=== PATIENT | female | born 2000 | race Caucasian/White ===

== ENCOUNTER 2024-09-13 20:55 | Emergency (ER) | payer BC, SELFPAY ==
[2024-09-13 21:04] VITALS: BP 163/94; PULSE 83; RESP 20; TEMP 37; O2SAT 100; BMI 51.5
--- NOTE | 2024-09-13 21:32 | CT_ITS ---
PROCEDURE INFORMATION: Exam: CT Abdomen And Pelvis Without Contrast Exam date and time: 09/13/2024 9:57 PM Age: 24 years old Clinical indication: Abdominal pain; Additional info: R flank pain, h/o kidney stones TECHNIQUE: Imaging protocol: Computed tomography of the abdomen and pelvis without contrast. Radiation optimization: All CT scans at this facility use at least one of these dose optimization techniques: automated exposure control; mA and/or kV adjustment per patient size (includes targeted exams where dose is matched to clinical indication); or iterative reconstruction. COMPARISON: No relevant prior studies available. FINDINGS: Liver: Normal. Gallbladder and biliary ducts: Normal Pancreas: Normal. Spleen: Normal. Adrenal glands: Normal. No mass. Kidneys and ureters: Mild right hydronephrosis, with 6 mm obstructive calculus at the right UPJ (series 3, image 61). Stomach and bowel: Normal. Appendix: Appendix normal. Intraperitoneal space: Unremarkable. No free air. No significant fluid collection. Vasculature: Phleboliths within the pelvis. Lymph nodes: Unremarkable. No enlarged lymph nodes. Urinary bladder: Unremarkable as visualized. Reproductive: Unremarkable as visualized. Bones/joints: No acute abnormality. Soft tissues: Normal. IMPRESSION: Mild right hydronephrosis, with 6 mm obstructive calculus at the right UPJ (series 3, image 61).
[2024-09-13 21:35] LABS: Basophils # 0.1 K/mm3 (0-0.2); Basophils % 0.5 % (0.1-2.0); Eosinophils # 0.3 Kmm3 (0.0-0.4); Eosinophils % 1.9 % (0.1-12.0); Hematocrit 41.2 % (37.0-47.0); Hemoglobin 14.1 g/dL (12.2-16.2); Immature Granulocytes # 0.08 10^3uL; Immature Granulocytes % 0.5 %; Lymphocytes # 3.6 K/mm3 (0.7-4.5); Mean Corpuscular HGB Conc 34.2 g/dL (31.8-35.4); Mean Corpuscular Hemoglobin 29.5 pg (27.0-31.2); Mean Corpuscular Volume 86.2 fl (81-99); Mean Platelet Volume 10.4 fl (7.4-10.4); Monocytes # 0.9 K/mm3 (0.1-1.0); Neutrophils # 12.8 K/mm3 (1.8-7.8); Neutrophils % 72.1 % (37.0-80.0); Nucleated Red Blood Cells # 0 10^3/uL; Nucleated Red Blood Cells % 0 %; Platelet Count 443 K/mm3 (142-424); Red Blood Count 4.78 M/mm3 (4.20-5.40); Red Cell Distribution Width-SD 40.3 fL; White Blood Count 17.7 K/mm3 (4.8-10.8)
--- NOTE | 2024-09-13 21:36 | ED_ITS ---
Discharge Plan Referrals Follow up/Referrals: Provider,Referral, [Primary Care Provider, Medical] - See instructions Clinical Impressions Clinical Impression: Ureterolithiasis, UTI (urinary tract infection) Print Language Print Language: Tamaz[place] Discharge ED Provider: Linh Leslie General Adult HPI General Chief complaint: PAIN Stated complaint: Poss Kidney stone, lower rt side pain Time Seen by Provider: 09/13/24 21:12 Mode of Arrival: Ambulatory Source of Information: Patient Description of Symptoms (Recalled from ER Triage Doc. by RN): Pt presents with right flank pain that began suddenly after a nap. Pt denies any urinary symptoms, rates pain 8/10, nausea and vomiting, and diapheretic. Pt states she has hx of kidney stones, typically begins with an ache before she the pain gets bad. Unsure if she may be . History of Present Illness HPI narrative: This patient is a 24-year-old female who reports prior history of kidney stones presenting to the emergency department for evaluation with concern for right flank pain that started suddenly this afternoon after a nap. She states today that is 10. She also notes accompanying nausea. She states that with prior kidney stones, she is never had nausea like this. No fevers, changes bowel movements, or other concerns. When asked if there is a chance she could be , she states there is a chance. No recent dysuria, urinary frequency, or abnormal vaginal discharge/bleeding. Related Data Allergies Allergy/AdvReac Type Severity Reaction Status Date / Time No Known Allergies Allergy Verified 09/13/24 21:36 [facility] Disclaimer: The information contained in this section may have been updated after the patient was seen, as this information can be updated by other users. Social History Smoking Status: Never smoker alcohol intake: never current occupational status: employed Travel in the last 8 weeks?: None ROS Obtained: Yes All systems reviewed & no additional complaints except as documented Physical Exam General General appearance: alert, in no apparent distress and obese Head Head exam: atraumatic and normocephalic Eye Eye exam: Present normal appearance, PERRL and EOMI ENT ENT exam: Present normal exam, normal oropharynx, mucous membranes moist and normal external ear exam Neck Neck exam: Present normal inspection, full ROM and trachea midline; Absent tenderness Chest Chest inspection: Present normal inspection and symmetric chest wall rise; Absent tenderness Respiratory Respiratory exam: Present normal lung sounds bilaterally; Absent respiratory distress, wheezes, stridor or accessory muscle use Cardiovascular Cardiovascular exam: Present regular rate and normal rhythm Abdominal Exam Abdominal exam: Present soft; Absent distention, tenderness or guarding Extremities Exam Extremities exam: Present normal inspection, full ROM and normal capillary refill; Absent tenderness or edema Back Exam Back exam: Present CVA tenderness (R) Neurological Exam Neurological exam: Present alert, oriented X3, CN II-XII intact and normal gait; Absent motor sensory deficit Psychiatric Psychiatric exam: Present normal affect and normal mood Skin Skin exam: Present warm and dry Medical Decision Making Medical Records Medical records reviewed: Yes I reviewed the patient's medical records. Screening: Per USPSTF and CDC recommendations, given the prevalence of disease in our region, it is our hospital?s policy to screen for HIV and viral Hepatitis for all patients aged 18 and over and those with ongoing risk factors. [place] Inquiry Pt receiving controlled substance: No Vital Signs: 09/13/24 21:04 Temperature 98.6 F Temperature Source Oral Pulse Rate [Left] 83 Respiratory Rate 20 Blood Pressure [Right Arm] 163/94 H Blood Pressure Mean [Right Arm] 117 Blood Pressure Position [Right Arm] Sitting 02 Sat by Pulse Oximetry 100 Oxygen Delivery Method Room Air Lab Data Lab results reviewed: Yes I reviewed the patient's lab results. Lab Results 09/13/24 21:30: WBC 17.7 H, RBC 4.78, Hgb 14.1, Hct 41.2, MCV 86.2, MCH 29.5, MCHC 34.2, RDW 13.0, Plt Count 443 H, MPV 10.4, Neut % (Auto) 72.1, Lymph % (Auto) 20.0, [place] % (Auto) 5.0, Eos % (Auto) 1.9, Baso % (Auto) 0.5, Neut # (Auto) 12.8 H, Lymph # (Auto) 3.6, [place] # (Auto) 0.9, Eos # (Auto) 0.3, Baso # (Auto) 0.1, Sodium 138, Potassium 4.9, Chloride 108 H, Carbon Dioxide 21 L, Anion Gap 13.9, BUN 14, Creatinine 0.90, Estimated Creat Clear 83, Estimated GFR 77, Est GFR ( Amer) 93, Glucose 110 H, Calcium 9.3, Total Bilirubin 0.4, AST 41 H, ALT 46, Alkaline Phosphatase 69, Total Protein 7.6, Albumin 4.6, Globulin 3.0, Albumin/Globulin Ratio 1.5, Lipase 86, Serum HCG, Qual Negative 09/13/24 22:01: Urine Color Yellow, Urine Appearance Slightly cloudy, Urine pH 7.5, Ur Specific [place] 1.020, Urine Protein 1+ A, Urine Glucose (UA) Negative, Urine Ketones Negative, Urine Blood 2+ A, Urine Nitrate Positive A, Urine Bilirubin Negative, Urine Urobilinogen 0.2, Ur Leukocyte Esterase 1+ A 09/13/24 21:30 09/13/24 21:30 Orders (Tests/Meds): ED MEDICATIONS Generic Name Dose Route Start Last Admin Trade Name Freq PRN Reason Stop Dose Admin Sodium Chloride 1,000 mls @ 999 mls/hr 09/13/24 22:15 09/13/24 22:19 Sod Chlor 0.9% 1000ml Bag IV 09/13/24 23:15 999 mls/hr .Q1H1M ONE Administration Ceftriaxone Sodium 2 gm/ 100 mls @ 200 mls/hr 09/13/24 22:16 Sodium Chloride IV 09/13/24 22:45 ONCE ONE Discontinued Medications Generic Name Dose Route Start Last Admin Trade Name Freq PRN Reason Stop Dose Admin Acetaminophen 1,000 mg 09/13/24 21:32 09/13/24 21:40 Acetaminophen 500mg Tab PO 09/13/24 21:33 1,000 mg ONCE ONE Administration Lactated Ringer's 1,000 mls @ 999 mls/hr 09/13/24 21:32 09/13/24 21:41 Lactated Ringer's 1000 Ml Bag IV 09/13/24 22:32 999 mls/hr .Q1H1M ONE Administration Ketorolac Tromethamine 30 mg 09/13/24 22:06 09/13/24 22:16 Ketorolac 30mg/Ml Vial IV 09/13/24 22:07 30 mg ONCE ONE Administration Ondansetron HCl 4 mg 09/13/24 21:32 09/13/24 21:41 Ondansetron 4mg/2ml Vial IV 09/13/24 21:33 4 mg ONCE ONE Administration ORDERS Category Date Time Status CT abdomen pelvis wo con Stat Cat Scan 09/13/24 21:32 Completed Complete Blood Count Auto Diff Stat Lab 09/13/24 21:30 Completed Comprehensive Metabolic Panel Stat Lab 09/13/24 21:30 Completed Lipase Stat Lab 09/13/24 21:30 Completed Serum [HCG Qualitative, Serum] Stat Lab 09/13/24 21:30 Completed UA [Urinalysis and Microscopic] Stat Lab 09/13/24 22:01 Results Blood Culture Stat Micro 09/13/24 22:15 Ordered Urine Culture Stat Micro 09/13/24 22:01 Received Medical Decision Narrative: In summary, this patient is a 24-year-old female presenting to the Emergency Department for evaluation of right flank pain and nausea that started suddenly 2 hours ago. Differential diagnoses considered include but are not limited to pyelonephritis, ureterolithiasis, colitis, appendicitis, cholecystitis, pancreatitis. Ruling out the most morbid conditions drove assessment. It should be noted patient's history includes obesity which is not at goal therapy. This complicates all aspects of care by increasing patient's risk for morbidity. On exam, the patient is uncomfortable appearing with right CVA tenderness. Exam is otherwise reassuring. Workup included CBC, CMP, lipase, urinalysis, test, CT abdomen pelvis without IV contrast. She was given a bolus of IV fluids as well as IV Zofran and oral acetaminophen for symptomatic improvement. I independently interpreted CT scan prior to the radiologist read and noted very large obstructive proximal stone in the right ureter. Please see their read for final interpretation. Labs were obtained that demonstrated leukocytosis with a white count of 17.7. Chemistries reassuring with normal kidney function. Urinalysis is concerning for infection with positive leukocyte esterase and nitrates.. On reassessment, the patient is sitting upright no acute distress. I added Toradol once test came back negative. She is nontoxic-appearing with hemodynamic stability, but I am concerned for an infected obstructed proximal stone with nitrates, leukocyte Estrace in her urine and significant leukocytosis. I feel she would benefit from transfer to higher level of care for urgent urology evaluation. I had an interactive discussion with Dr. Olsen and transfer center who accepted the patient for transfer to [facility] for further evaluation and management by urology. Patient was given sepsis bolus of IV fluids per ideal body weight, IV Rocephin, and she was transferred in stable condition. Critical Care Critical Care Time Critical Care Time: Yes Attestation: On 09/13/24, the high probability of a clinically significant, sudden or life threatening deterioration of the following system(s) required my full and direct attention, intervention and personal management. The time I documented below is in addition to time spent performing reported procedures but includes the following listed in this critical care notation. Total Time Total Critical Care Time: 35
[2024-09-13] MEDS: ACETAMINOPHEN 500MG TAB 1000 MG PO (21:40)
[2024-09-13] MEDS: ONDANSETRON 4MG/2ML VIAL 4 MG IV (21:41)
[2024-09-13] MEDS: LACTATED RINGERS 1000ML 1,000 ML 999 ML IV (21:41)
[2024-09-13 21:48] LABS: Albumin Level 4.6 g/dl (3.5-5.0); Chloride 108 mmol/L (98-107); HCG Qualitative, Serum Negative (Negative); Potassium 4.9 mmoL/L (3.5-5.1); Sodium 138 mmol/L (136-145)
[2024-09-13 21:50] LABS: Blood Urea Nitrogen 14 mg/dl (7-17)
[2024-09-13 21:51] LABS: Alanine Aminotransferase 46 U/L (12-78); Albumin/Globulin Ratio 1.5 (1.1-1.8); Alkaline Phosphatase 69 U/L (38-126); Anion Gap 13.9 mEq/L (5-15); Aspartate Amino Transferase 41 U/L (14-36); Bilirubin,Total 0.4 mg/dl (0.2-1.3); Calcium 9.3 mg/dl (8.4-10.2); Carbon Dioxide 21 mmol/L (22.0-30.0); Creatinine Clearance Estimated 83 mL/min (50-200); Estimated Glomerular Filt Rate 77 ml/min (>60); GFR (African American) 93 ML/MIN (>60); Glucose 110 mg/dl (74-100); Total Protein,Serum 7.6 g/dl (6.3-8.2)
[2024-09-13 21:58] LABS: Lipase 86 U/L (23-300)
[2024-09-13 22:06] LABS: Microscopic, Urine URINE MICROSCOPIC (MICROSCOPIC)
[2024-09-13 22:10] LABS: Bilirubin,Urine Negative (Negative); Blood, Urine 2+ (Negative); Color,Urine YELLOW (Yellow); Glucose,Urine (UA) Negative (Negative); Ketones,Urine Negative (Negative); Leukocyte Esterase,Urine 1+ (Negative); Nitrate,Urine POSITIVE (Negative); PH,Urine 7.5 (5.0-8.5); Protein,Urine 1+ (Negative); Urobilinogen,Urine 0.2 EU/dl (0.2)
[2024-09-13 22:12] LABS: Appearance,Urine Slightly Cloudy (Clear)
[2024-09-13] MEDS: KETOROLAC 30MG/ML VIAL 30 MG IV (22:16)
[2024-09-13 22:17] VITALS: BP 141/76; PULSE 71; RESP 18; TEMP 37.1; O2SAT 100
[2024-09-13] MEDS: 0.9 % SODIUM CHLORIDE 1000ML 1,000 ML 999 ML IV (22:19)
--- NOTE | 2024-09-13 22:32 | PC.NURSE ---
called [facility] for this pt regarding a transfer. [facility] said they would call back
[2024-09-13] MEDS: MORPHINE 4MG/ML SYRINGE 4 MG IV (22:50)
[2024-09-13 23:03] LABS: Bacteria,Urine 4+ /lpf; Triple Phosphate Crystal,Urine 1+ /lpf
[2024-09-13] MEDS: CEFTRIAXONE SODIUM 2 GM in 0.9 % SODIUM CHLORIDE 100 ML IV (23:14)
--- NOTE | 2024-09-13 23:32 | PC.NURSE ---
report called to Thalia KOWALSKI charge [facility] Cs[facility]ar Zelaya
[2024-09-14 00:10] VITALS: BP 142/99; PULSE 65; RESP 15; TEMP 36.9; O2SAT 96
--- NOTE | 2024-09-21 08:23 | PC.NURSE ---
Blood culture results faxed to [facility]
== END 2024-09-14 00:13 | disposition short-term general hospital (02) ==
PROVIDERS: Emergency Provider Emergency Medicine
DX: N13.0 Hydronephrosis with ureteropelvic junction obstruction (principal); R10.31 Right lower quadrant pain; B96.4 Proteus (mirabilis) (morganii) as the cause of diseases classified elsewhere; D72.829 Elevated white blood cell count, unspecified
CPT/HCPCS: 74176; 80053; 81001; 83690; 84703; 85025; 87040; 87077; 87086; 87088; 87186; 96361; 96365; 96375; 99291; J0696; J1885; J2270; J2405; J7030; J7120